=== PATIENT | male | born 1970 | race Caucasian/White ===

== ENCOUNTER 2017-02-10 20:27 | Emergency (ER) | payer BC ==
[~2017-02-10] VITALS: Ht 186.7 cm; Wt 96.1 kg
[~2017-02-10 20:27] MED LIST: WARF10TA PO; WARF7.5T PO
[2017-02-10 20:33] VITALS: TEMP 36.7; Ht 186.7 cm; Wt 96.1 kg
[2017-02-10 21:23] LABS: BASO % 0.4 %; BASO ABS # 0.03 K/uL (0-0.2); COMPLETE YES; EOS % 1.5 %; HEMATOCRIT 40.8 % (42-52); IG% 0.1 %; LYMPH % 35.1 %; LYMPH ABS # 2.53 K/uL (1.2-3.4); MEAN CELL VOLUME 87.6 fL (80-100); MEAN CORPUSCULAR HGB CONC 34.3 g/dl (32-36); MONO % 9.7 %; NEUT % 53.2 %; PLATELET COUNT 172 K/uL (130-400); RED BLOOD COUNT 4.66 M/uL (4.7-6.1)
[2017-02-10 21:30] LABS: INR 2.1 (0.9-1.1); PROTHROMBIN TIME (PATIENT) 22.7 SECONDS (9.0-12.0)
[2017-02-10 21:38] LABS: BLOOD UREA NITROGEN 19 mg/dl (7-18); GLUCOSE 123 mg/dl (70-99)
--- NOTE | 2017-02-10 21:38 | DIAGNOSTIC IMAGING REPORT ---
BILATERAL LOWER EXTREMITY VENOUS DOPPLER HISTORY: Acute left lower extremity swelling/pain COMPARISON STUDY: None. FINDINGS: There is normal compressibility, flow, and augmentation within the left lower extremity deep venous system. IMPRESSION: No DVT within the left lower extremity. Electronically signed by: Adan Lindquist M.D. 02/10/2017 9:37 PM Dictated Date/Time: 02/10/2017 9:36 PM
[2017-02-10 21:39] LABS: BUN/CREATININE RATIO 17.2 (10-20); CALCIUM 8.3 mg/dl (8.5-10.1); CARBON DIOXIDE 26 mmol/L (21-32); CHLORIDE 107 mmol/L (98-107); POTASSIUM 3.5 mmol/L (3.5-5.1); SODIUM 140 mmol/L (136-145)
--- NOTE | 2017-02-10 21:54 | EMERGENCY ROOM VISIT NOTE ---
History Report prepared by Mati: Emanuel Mejia Under the Supervision of: Dr. Jackie Moore D.O. First contact with patient: 20:40 Chief Complaint: LEG PAIN,LEG INJURY Stated Complaint: LF LEG DISCOMFORT,HX BLOOD CLOTS History of Present Illness The patient is a 46 year old male who presents to the Emergency Room with complaints of persistent left leg pain and swelling beginning this week. The patient has a history of blood clots and is on Coumadin. He states that he recently had his INR checked and found it to be 2.0. He has received genetic testing which was all negative. The patient notes that he had an episode of left calf cramping two weeks ago while playing baseball, and then again this week while playing baseball. His pain is worsened with walking. He denies any fevers, chills, chest pain, SOB, numbness, or weakness. The patient denies any excess bleeding through his stool, nose, or vomit. Source of History: patient Onset: This week Position: leg (left) Quality: other (pain and swelling) Timing: other (persistent) Modifying Factors (Worsening): other (walking) Associated Symptoms: No fevers, No chills, No chest pain, No SOB, No weakness, No numbness Review of Systems See HPI for pertinent positives & negatives. A total of 10 systems reviewed and were otherwise negative. Past Medical & Surgical Medical Problems: (1) DVT (deep venous thrombosis) (2) History of blood clotting problems Family History Cancer Heart disease Social History Smoking Status: Never Smoker Drug Use: none Marital Status: Housing Status: lives with family Occupation Status: employed Current/Historical Medications Scheduled Warfarin Sodium (Coumadin), 7.5 MG PO 2XWK Warfarin Sodium (Coumadin), 10 MG PO 5XWK Allergies Coded Allergies: No Known Allergies (Verified , NONE, 05/11/15) Physical Exam Vital Signs Date Time Temp Pulse Resp B/P (MAP) Pulse Ox O2 Delivery O2 Flow Rate FiO2 02/10/17 22:02 64 18 146/73 95 02/10/17 20:33 36.7 55 18 135/77 98 Room Air Physical Exam GENERAL: alert, well appearing, well nourished, no distress, non-toxic EYE EXAM: normal conjunctiva, PERRL and EOM's grossly intact OROPHARYNX: no exudate, no erythema, lips, buccal mucosa, and tongue normal and mucous membranes are moist NECK: supple, no nuchal rigidity, no adenopathy, non-tender LUNGS: Clear to auscultation. Normal chest wall mechanics HEART: no murmurs, S1 normal and S2 normal ABDOMEN: abdomen soft, non-tender, normo-active bowel sounds, no masses, no rebound or guarding. BACK: Back is symmetrical on inspection and there is no deformity, no midline tenderness, no CVA tenderness. SKIN: no rashes and no bruising UPPER EXTREMITIES: upper extremities are grossly normal. LOWER EXTREMITIES: No pitting edema. No calf tenderness. Compartments soft, no evidence of trauma, normal range of motion, no joint effusion, normal pulses. NEURO EXAM: Normal sensorium, cranial nerves II-XII grossly intact, normal speech, no gross weakness of arms, no gross weakness of legs. Medical Decision & Procedures ER Provider Diagnostic Interpretation: Radiology results have been interpreted by the radiologist and reviewed by me. BILATERAL LOWER EXTREMITY VENOUS DOPPLER FINDINGS: There is normal compressibility, flow, and augmentation within the left lower extremity deep venous system. IMPRESSION: No DVT within the left lower extremity. Electronically signed by: Adan Lindquist M.D. Laboratory Results 02/10/17 21:02 Red Blood Count 4.66, Mean Corpuscular Volume 87.6, Mean Corpuscular Hemoglobin 30.0, Mean Corpuscular Hemoglobin Concent 34.3, Mean Platelet Volume 10.0, Neutrophils (%) (Auto) 53.2, Lymphocytes (%) (Auto) 35.1, Monocytes (%) (Auto) 9.7, Eosinophils (%) (Auto) 1.5, Basophils (%) (Auto) 0.4, Neutrophils # (Auto) 3.82, Lymphocytes # (Auto) 2.53, Monocytes # (Auto) 0.70, Eosinophils # (Auto) 0.11, Basophils # (Auto) 0.03 02/10/17 21:02 Test 02/10/17 21:02 White Blood Count 7.20 K/uL (4.8-10.8) Red Blood Count 4.66 M/uL (4.7-6.1) Hemoglobin 14.0 g/dL (14.0-18.0) Hematocrit 40.8 % (42-52) Mean Corpuscular Volume 87.6 fL (80-100) Mean Corpuscular Hemoglobin 30.0 pg (25-34) Mean Corpuscular Hemoglobin Concent 34.3 g/dl (32-36) Platelet Count 172 K/uL (130-400) Mean Platelet Volume 10.0 fL (7.4-10.4) Neutrophils (%) (Auto) 53.2 % Lymphocytes (%) (Auto) 35.1 % Monocytes (%) (Auto) 9.7 % Eosinophils (%) (Auto) 1.5 % Basophils (%) (Auto) 0.4 % Neutrophils # (Auto) 3.82 K/uL (1.4-6.5) Lymphocytes # (Auto) 2.53 K/uL (1.2-3.4) Monocytes # (Auto) 0.70 K/uL (0.11-0.59) Eosinophils # (Auto) 0.11 K/uL (0-0.5) Basophils # (Auto) 0.03 K/uL (0-0.2) RDW Standard Deviation 40.9 fL (36.4-46.3) RDW Coefficient of Variation 12.8 % (11.5-14.5) Immature Granulocyte % (Auto) 0.1 % Immature Granulocyte # (Auto) 0.01 K/uL (0.00-0.02) Prothrombin Time 22.7 SECONDS (9.0-12.0) Prothromb Time International Ratio 2.1 (0.9-1.1) Anion Gap 7.0 mmol/L (3-11) Est Creatinine Clear Calc Drug Dose 97.2 ml/min Estimated GFR () 93.5 Estimated GFR (Non- 80.6 BUN/Creatinine Ratio 17.2 (10-20) Calcium Level 8.3 mg/dl (8.5-10.1) Troponin I < 0.015 ng/ml (0-0.045) Laboratory results per my review. ECG Indication: other (leg swelling) Rate (beats per minute): 61 Rhythm: normal sinus Findings: no acute ischemic change, no ectopy, other (Normal axis. Normal intervals. ) ED Course 2043: The patient was evaluated in room B9B. A complete history and physical exam was performed. 2149: Upon reevaluation, the patient is feeling better. I discussed the findings and the treatment plan with the patient. He verbalizes agreement and understanding. He was discharged home. Medical Decision Differential diagnosis: Etiologies such as DVT, musculoskeletal, infection, joint effusion, trauma, lymphedema, idiopathic, CHF, as well as others were entertained. Patient well-appearing here, no symptoms to suggest PE, INR therapeutic, and LE Doppler negative. Doubt ACS, dysrhythmia, tamponade, effusion, infiltrate, pneumothorax, GI bleed, perforation. Vital signs stable throughout, no evidence of additional vascular pathology. Discussed with patient continued in frequent monitoring of his INR given his use of Coumadin, discussed follow-up with family doctor as a precaution, discussed symptoms to watch and return for, he is verbalized understanding were agreeable with plan. Impression Primary Impression: Leg pain, left Scribe Attestation The scribe's documentation has been prepared under my direction and personally reviewed by me in its entirety. I confirm that the note above accurately reflects all work, treatment, procedures, and medical decision making performed by me. Departure Information Dispostion Home / Self-Care Referrals No Doctor, Assigned (PCP) Patient Instructions My [facility] Additional Instructions Please continue regular medications as prescribed. Your INR tonight was 2.1. If you have any recurrent or worsening leg pain or swelling, develop chest pain , trouble breathing, dizziness, fevers, noticed blood in your urine or stool, develop a rash/sores of the skin, or you have any other new concerns, please return the emergency room.
[2017-02-10 22:02] VITALS: BP 146/73; PULSE 64; O2SAT 95
== END 2017-02-10 22:04 | disposition home or self-care (01) ==
LOC: C.EDB 20:28
DX: M79.605 Pain in left leg (principal); Z86.718 Personal history of other venous thrombosis and embolism; Z79.01 Long term (current) use of anticoagulants; Z80.9 Family history of malignant neoplasm, unspecified

== ENCOUNTER → 2018-01-05 | Outpatient (CLI) | payer OTHER ==
[2018-01-05 09:48] LABS: ALBUMIN 3.9 gm/dl (3.4-5.0); ALKALINE PHOSPHATASE 52 U/L (45-117); ALT/SGPT 30 U/L (12-78); AST/SGOT 21 U/L (15-37); BLOOD UREA NITROGEN 16 mg/dl (7-18); CALCIUM 8.5 mg/dl (8.5-10.1); CARBON DIOXIDE 25 mmol/L (21-32); CHOLESTEROL 163 mg/dl (0-200); CREATININE 1.19 mg/dl (0.60-1.40); GLUCOSE 97 mg/dl (70-99); LDL CHOLESTEROL CALCULATED 94 mg/dl; SODIUM 141 mmol/L (136-145); TOTAL PROTEIN 7.2 gm/dl (6.4-8.2)
== END | disposition home or self-care (01) ==
LOC: C.LAB1850 08:13
PROVIDERS: ATTEND Nurse Practitioner Family
DX: Z13.220 Encounter for screening for lipoid disorders (principal)